=== PATIENT | female | born 1985 | race Caucasian/White ===

== ENCOUNTER 2021-09-16 11:13 | Emergency (ER) | payer MEDICAID, SELFPAY ==
[2021-09-16 11:15] VITALS: BP 119/77; PULSE 98; O2SAT 98; BMI 20.5
[2021-09-16 11:21] VITALS: BP 137/79; PULSE 88; RESP 16; TEMP 37.1; O2SAT 98
--- NOTE | 2021-09-16 11:47 | ED.ALLEREA ---
HPI - Allergic Reaction General Chief complaint: Allergic Reaction Stated complaint: ITCHY EYES/THROAT,ALLERGIC RX S/P EYEBROW WAX T-1 Time Seen by Provider: 09/16/21 11:47 Source: patient and EMS Mode of arrival: EMS Limitations: no limitations History of Present Illness MD complaint: allergic reaction and facial swelling Onset (ago): day(s) (yesterday ) Exposure: other (home eyebrow waxing kit) Symptoms: itching and facial swelling Severity: moderate Treatment prior to arrival: other (claritin) Previous Allergic Reaction History: none Related Data Previous Rx's Medication Instructions Recorded prednisone 20 mg tablet 40 mg PO DAILY 4 Days #8 tab 09/16/21 Allergies Allergy/AdvReac Type Severity Reaction Status Date / Time Benadryl Allergy Unknown Hives Uncoded 09/16/21 11:21 From BENADRYL Allergy Unknown HIVE Uncoded 08/14/20 15:41 Review of Systems Review of Systems: Constitutional : No Fever, No Chills ENT/Mouth : no oral swelling, No Hoarseness, No Swallowing Difficulty Eyes: No Eye Pain, No Swelling, No Redness Cardiovascular : No Chest Pain, No SOB Respiratory : No Cough, No Sputum, No Wheezing, No Smoke Exposure, No Dyspnea Gastrointestinal : No Nausea, No Vomiting, No Diarrhea, No abdominal Pain Genitourinary : No Dysuria, No Urinary Frequency, No Hematuria Musculoskeletal : No joint pain, No Myalgias, No Joint Swelling Skin : No Skin Lesions, positive rash, pos facial swelling Neuro : No Weakness, No Numbness, No Headache PMFSH Past Medical History Attestation statement: The following information was validated with the patient. Medical History No known health problems Social History Social History (Updated 09/16/21 @ 11:51 by Jenni Adkins DO) Patient Tobacco Use Status: Never used Tobacco Advance Directives: No Advance Directives Information Provided: No Patient : No Physical Exam Vital Signs: Vital Signs: Last Vital Signs Temp 98.7 F 09/16/21 11:21 Pulse 88 09/16/21 11:21 Resp 16 09/16/21 11:21 BP 137/79 09/16/21 11:21 Pulse Ox 98 09/16/21 11:21 Body Mass Index 20.5 Appearance: Alert. Oriented X3. No acute distress. Eyes: Pupils equal, round and reactive to light. ENT: Pharynx normal. mild erythema and raised hive like areas noted around eyebrow area Neck: Normal inspection. Neck supple. CVS: Normal heart rate and rhythm. Pulses normal. Respiratory: No respiratory distress. Breath sounds normal. Abdomen: Soft and nontender. Skin: Skin warm and dry. Normal skin color. Normal skin turgor. Extremities: No lower extremity edema Neuro: Oriented X 3. No motor deficit. No sensory deficit. MDM - Allergic Reaction MDM Narrative Medical decision making narrative: 36 yo female with isolated edema/erythema to eyebrows after using home waxing kit - will need prednisone to decrease swelling, no resp involvement, no other complaints. Aware she cannot use the kit again Discharge Plan Discharge Clinical Impression: Allergic reaction Qualifiers: Encounter type: initial encounter Qualified Code(s): T78.40XA - Allergy, unspecified, initial encounter Patient Disposition: Home, Self-Care Instructions: General Allergic Reaction (ED) Additional Instructions: return to ED for any worsening symptoms or concerns Prescriptions: New prednisone 20 mg tablet 40 mg PO DAILY 4 Days Qty: 8 RF: 0 Stand Alone Forms: Work/School Release
[2021-09-16] MEDS: predniSONE 20 MG TABLET 40 MG PO (11:56)
== END 2021-09-16 11:59 | disposition home or self-care (01) ==
PROVIDERS: Emergency Provider Emergency Medicine
DX: T78.40XA Allergy, unspecified, initial encounter (principal); X58.XXXA Exposure to other specified factors, initial encounter
CPT/HCPCS: 99283

== ENCOUNTER 2021-11-03 10:38 | Emergency (ER) | payer MEDICAID, SELFPAY ==
--- NOTE | ~2021-11-03 | XR_ITS ---
EXAMINATION: XR CHEST CLINICAL INFORMATION: Chest pain, SOB. COMPARISON: Left RIBS 12/20/2016 TECHNIQUE: Frontal view of the chest was obtained. FINDINGS: The lungs are hyperinflated but clear of acute process. The heart size and pulmonary vascularity is normal. No gross bony abnormality seen. XR/XR chest 1V IMPRESSION: Unremarkable chest examination.
--- NOTE | 2021-11-03 10:46 | ECG_ITS ---
Test Reason : CHEST PAIN Blood Pressure : / mmHG Vent. Rate : 077 BPM Atrial Rate : 077 BPM P-R Int : 144 ms QRS Dur : 084 ms QT Int : 366 ms P-R-T Axes : 057 087 052 degrees QTc Int : 414 ms Normal sinus rhythm Normal ECG When compared with ECG of 06-FEB-2007 13:46, No significant change was found Referred By: Loyda Farmer Electronically Signed By:Isai Dumont
[2021-11-03 10:47] VITALS: BP 123/81; BP 137/88; PULSE 73; PULSE 94; RESP 16; TEMP 36.7; O2SAT 100; BMI 20.1
--- NOTE | 2021-11-03 10:48 | ED_ITS ---
HPI - Chest Pain General Chief Complaint: Chest Pain Stated Complaint: CHEST TIGHTNESS,PALPITATIONS Time Seen by Provider: 11/03/21 10:42 Source: patient and EMS Mode of arrival: EMS Limitations: no limitations History of Present Illness HPI narrative: 36 y/o female with history of migraines who presents to the ER f rom home via EMS with intermittent episodes of chest tightness, SOB, and weakness that started yesterday. She reports yesterday she had a brief episode where her whole body felt weak, she was having some chest tightness and palpitations at the time. She had some shortness of breath when walking around as well. All of her symptoms resolved within a few moments. She had a normal rest of the day and when she woke up today she felt fine. She reports when she was outside walking to the car she again had recurrent feeling of generalized weakness with some mild shortness of breath and chest tightness. She describes the pain as if she got hit in the chest and there is a subsiding residual pain. On arrival to the ER she has no symptoms. She is not vaccinated for COVID. She has had no fever or chills. No known sick contacts. She is not on oral control pills. She has no personal or family history of blood clots. MD complaint: chest discomfort Onset (ago): day(s) (1) Timing of current episode: episodic Prior episodes: No Onset: during rest and during exertion Pain location: substernal Pain radiation: none Severity: mild Quality: tightness and aching Relieving factors: rest Exacerbating factors: nothing Associated symptoms: palpitations and other (Generalized weakness) Treatment prior to arrival: none Risk Factors Coronary artery disease risk factors: none Thoracic aortic dissection risk factors: none Related Data On Oral Contraceptives: No Previous Rx's Medication Instructions Recorded prednisone 20 mg tablet 40 mg PO DAILY 4 Days #8 tab 09/16/21 Allergies Allergy/AdvReac Type Severity Reaction Status Date / Time Benadryl Allergy Unknown Hives Uncoded 09/16/21 11:21 From BENADRYL Allergy Unknown HIVE Uncoded 08/14/20 15:41 Review of Systems Review of Systems: Constitutional: No Fever, No Chills ENT/Mouth: No sore throat, No Rhinorrhea, No Swallowing Difficulty Eyes: No Eye Pain, No Swelling, No Redness Cardiovascular: + Chest Pain, + SOB, No Orthopnea, No Edema, +palpitations Respiratory: No Cough, No Sputum, No Wheezing, No dyspnea Gastrointestinal: No Nausea, No Vomiting, No Diarrhea, No abdominal Pain, No Hematochezia, No Melena Genitourinary: No Dysuria, No Urinary Frequency, No Hematuria Musculoskeletal: No joint pain, No Myalgias Skin: No Skin Lesions, No rash Neuro: + Weakness, No Numbness, No Dizziness, No Headache Psych: + Anxiety/Panic, No Depression Heme/Lymph: No Bruising, No Lymphadenopathy Endocrine: No Polyuria, No Polydipsia [facility] Past Medical History Medical History (Updated 11/03/21 @ 11:03 by DAYANARA Scott) Migraines No known health problems Social History Social History (Updated 09/16/21 @ 11:51 by Jenni Adkins DO) Alcohol intake: current Alcohol intake frequency: holidays/special occasions only Patient Tobacco Use Status: Current everyday Tobacco user Use of substances other than those prescribed or required for medical reasons: Yes Substance Use Type: Marijuana Advance Directives: No Advance Directives Information Provided: Yes Physical Exam Vital Signs: Vital Signs: Last Vital Signs Temp 98.1 F 11/03/21 10:47 Pulse 73 11/03/21 10:47 Resp 16 11/03/21 10:47 BP 137/88 11/03/21 10:47 Pulse Ox 100 11/03/21 10:47 BMI result Body Mass Index 20.1 Appearance: Alert. Oriented X3. No acute distress. Eyes: Pupils equal, round and reactive to light. ENT: Pharynx normal. Neck: Normal inspection. Neck supple. CVS: Normal heart rate and rhythm. Pulses normal. Normal S1/S2, no murmur. Respiratory: No respiratory distress. Breath sounds normal. Abdomen: Soft and nontender. +BS x4 Skin: Skin warm and dry. Normal skin color. Normal skin turgor. No rashes. Extremities: No lower extremity edema. No calf tenderness or swelling. Neuro: Oriented X 3. No motor deficit. No sensory deficit. Course Course Course Narrative: 36 y/o healthy female presents to the ER with episodic feelings of generalized weakness, chest pains, SOB and palpitations. Had 2 episodes in the last day. Now resolved. No risk factors for PE, PERC negative. VS are normal with benign PE. Will get labs, EKG, COVID and CXR. Reevaluation(s) Reevaluation #1: Lab workup is unremarkable. EKG is normal, chest x-ray is normal, COVID negative. She continues to be symptom free. She reports history of similar episodes several years ago, but is more worried with them now that she is getting older. She called her primary care doctor prior to coming into the ER and plans follow-up with them as an outpatient for further evaluation and management. At this time she is stable for discharge home with close outpatient follow-up and plan to return to the ER if symptoms worsen. MDM - Chest Pain Medical Records Data Attestation: I reviewed the patient's medical records. Lab Data Attestation: I reviewed the patient's lab results. Result diagrams: 11/03/21 11:04 11/03/21 11:04 Labs: Lab Results 11/03/21 11/03/21 11/03/21 Range/Units 11:04 11:04 11:04 WBC 6.1 (4.8-10.8) X10*3/uL RBC 3.99 L (4.20-5.50) X10*6/uL Hgb 11.6 L (12.0-16.0) g/dl Hct 35.2 L (37.0-47.0) % MCV 88.2 (80.0-98.0) fL MCH 29.1 (27.0-33.0) pg MCHC 33.0 (31.0-35.0) g/dl RDW 12.7 (11.0-16.0) % Plt Count 193 (160-400) X10*3/uL MPV 9.7 (9.4-12.3) fL Immature Gran % (Auto) 0.2 (0.0-0.4) % Neut % (Auto) 52.7 (45-73) % Lymph % (Auto) 36.4 (20-40) % Kaufman % (Auto) 8.2 (2-11) % Eos % (Auto) 1.8 (0-4) % Baso % (Auto) 0.7 (0-2) % Lymph # (Auto) 2.2 (1.2-4.9) X10*3/uL Kaufman # (Auto) 0.5 (0.1-1.2) X10*3/uL Eos # (Auto) 0.1 (0.0-0.4) X10*3/uL Baso # (Auto) 0.0 (0.0-0.2) X10*3/uL Abs Immat Gran (auto) 0.01 (0.00-0.03) X10*3/uL Absolute Neuts (auto) 3.2 (2.0-8.3) x10*3/uL Absolute Nucleated RBC 0.000 (0.0-0.012) X10*3/uL Nucleated RBC % (auto) 0.0 (0.0-0.2) /100WBC Sodium 137 (135-145) mmol/L Potassium 3.8 (3.3-5.1) mmol/L Chloride 106 (96-108) mmol/L Carbon Dioxide 24 (22-29) mmol/L Anion Gap 11 L (12-20) BUN 16 (9-16) mg/dL Creatinine 0.72 (0.5-1.4) mg/dL Estim Creat Clear Calc 86.7 Estimated GFR > 60 Random Glucose 87 (60-115) mg/dL Calcium 9.3 (8.4-10.2) mg/dL Magnesium 1.7 (1.6-2.6) mg/dL Total Bilirubin 1.0 (0.0-1.0) mg/dL Direct Bilirubin 0.4 (0.0-0.5) mg/dL AST 15 (5-31) U/L ALT 16 (0-31) U/L Alkaline Phosphatase 40 (39-117) U/L Troponin I High Sens < 3.5 (<3.5-17.0) ng/L Total Protein 7.1 (6.5-8.0) g/dL Albumin 4.2 (3.5-5.0) g/dL TSH (0.32-4.0) uIU/mL Influenza Type A (PCR) (Negative) Influenza Type B (PCR) (Negative) RSV RNA Qual (PCR) (Negative) SARS-CoV-2 RNA (RT-PCR) (Negative) 11/03/21 11/03/21 Range/Units 11:04 11:04 WBC (4.8-10.8) X10*3/uL RBC (4.20-5.50) X10*6/uL Hgb (12.0-16.0) g/dl Hct (37.0-47.0) % MCV (80.0-98.0) fL MCH (27.0-33.0) pg MCHC (31.0-35.0) g/dl RDW (11.0-16.0) % Plt Count (160-400) X10*3/uL MPV (9.4-12.3) fL Immature Gran % (Auto) (0.0-0.4) % Neut % (Auto) (45-73) % Lymph % (Auto) (20-40) % Kaufman % (Auto) (2-11) % Eos % (Auto) (0-4) % Baso % (Auto) (0-2) % Lymph # (Auto) (1.2-4.9) X10*3/uL Kaufman # (Auto) (0.1-1.2) X10*3/uL Eos # (Auto) (0.0-0.4) X10*3/uL Baso # (Auto) (0.0-0.2) X10*3/uL Abs Immat Gran (auto) (0.00-0.03) X10*3/uL Absolute Neuts (auto) (2.0-8.3) x10*3/uL Absolute Nucleated RBC (0.0-0.012) X10*3/uL Nucleated RBC % (auto) (0.0-0.2) /100WBC Sodium (135-145) mmol/L Potassium (3.3-5.1) mmol/L Chloride (96-108) mmol/L Carbon Dioxide (22-29) mmol/L Anion Gap (12-20) BUN (9-16) mg/dL Creatinine (0.5-1.4) mg/dL Estim Creat Clear Calc Estimated GFR Random Glucose (60-115) mg/dL Calcium (8.4-10.2) mg/dL Magnesium (1.6-2.6) mg/dL Total Bilirubin (0.0-1.0) mg/dL Direct Bilirubin (0.0-0.5) mg/dL AST (5-31) U/L ALT (0-31) U/L Alkaline Phosphatase (39-117) U/L Troponin I High Sens (<3.5-17.0) ng/L Total Protein (6.5-8.0) g/dL Albumin (3.5-5.0) g/dL TSH 0.55 (0.32-4.0) uIU/mL Influenza Type A (PCR) NEGATIVE (Negative) Influenza Type B (PCR) NEGATIVE (Negative) RSV RNA Qual (PCR) NEGATIVE (Negative) SARS-CoV-2 RNA (RT-PCR) NEGATIVE (Negative) ECG Data ECG #1: Attestation: I personally reviewed and interpreted this ECG as follows: ECG interpretation date: 11/03/21 ECG interpretation time: 11:02 Prior ECG tracings: not available for review Interpretation: Normal sinus rhythm, heart rate 77 beats per minute, normal MD interval, normal QRS, no ST segment elevations or depressions. Critical Care Time Critical Care Time Critical Care Time: No Discharge Plan Discharge Clinical Impression: Atypical chest pain Patient Disposition: Home, Self-Care Instructions: Noncardiac Chest Pain (ED) Additional Instructions: Your lab workup today was normal. Your chest x-ray was normal. You were negative for COVID-19. No evidence of cardiac cause of your chest pain. This may be anxiety related Recommend following up with your primary care doctor for further evaluation and management. If you develop new or worsening symptoms call 911 or come back to the ER for further evaluation. Prescriptions: No Action prednisone 20 mg tablet 40 mg PO DAILY 4 Days Qty: 8 RF: 0 Interventions: ED Discharge Assessment Last Done: 11/03/21 13:34 Discharge Date/Time: 11/03/21 13:38
[2021-11-03 11:15] LABS: Basophils Percent Auto 0.7 % (0-2); Eosinophils Absolute Auto 0.1 X10*3/uL (0.0-0.4); Eosinophils Percent Auto 1.8 % (0-4); Hematocrit 35.2 % (37.0-47.0); Hemoglobin 11.6 g/dl (12.0-16.0); Imm Gran Abs Auto 0.01 X10*3/uL (0.00-0.03); Imm Gran Pct Auto 0.2 % (0.0-0.4); Lymphocytes Absolute Auto 2.2 X10*3/uL (1.2-4.9); Lymphocytes Percent Auto 36.4 % (20-40); MANUAL DIFF FLAG NO; Mean Corpuscular Hemoglobin 29.1 pg (27.0-33.0); Mean Corpuscular Volume 88.2 fL (80.0-98.0); Mean Platelet Volume 9.7 fL (9.4-12.3); Monocytes Absolute Auto 0.5 X10*3/uL (0.1-1.2); Monocytes Percent Auto 8.2 % (2-11); Neutrophils Absolute Auto 3.2 x10*3/uL (2.0-8.3); Neutrophils Percent Auto 52.7 % (45-73); Platelet Count 193 X10*3/uL (160-400); Red Blood Count 3.99 X10*6/uL (4.20-5.50); Red Cell Distribution Width 12.7 % (11.0-16.0); White Blood Count 6.1 X10*3/uL (4.8-10.8)
[2021-11-03 11:34] LABS: Alanine Aminotransferase 16 U/L (0-31); Albumin Level 4.2 g/dL (3.5-5.0); Alkaline Phosphatase 40 U/L (39-117); Anion Gap 11 (12-20); Aspartate Amino Transferase 15 U/L (5-31); Bilirubin Direct 0.4 mg/dL (0.0-0.5); Blood Urea Nitrogen 16 mg/dL (9-16); Calcium 9.3 mg/dL (8.4-10.2); Carbon Dioxide 24 mmol/L (22-29); Chloride 106 mmol/L (96-108); Creatinine Clr Calc Pharmacy 86.7; Estimated Glomerular Filt Rate > 60; Glucose Random 87 mg/dL (60-115); Magnesium 1.7 mg/dL (1.6-2.6); Potassium 3.8 mmol/L (3.3-5.1); Sodium 137 mmol/L (135-145); Total Protein 7.1 g/dL (6.5-8.0)
[2021-11-03 11:37] LABS: Troponin-I High Sensitivity < 3.5 ng/L (<3.5-17.0)
[2021-11-03 11:51] LABS: TSH reflex Free T4 0.55 uIU/mL (0.32-4.0)
[2021-11-03 11:57] LABS: Influenza A PCR NEGATIVE (Negative); Influenza B PCR NEGATIVE (Negative); Resp Syncy Virus RNA Qual PCR NEGATIVE (Negative); SARS COV2 PCR INHOUSE NEGATIVE (Negative)
== END 2021-11-03 13:38 | disposition home or self-care (01) ==
PROVIDERS: Physician Assistant; Emergency Provider Emergency Medicine
DX: R07.9 Chest pain, unspecified (principal); R00.2 Palpitations; F17.200 Nicotine dependence, unspecified, uncomplicated; Z71.6 Tobacco abuse counseling; Z79.899 Other long term (current) drug therapy; Z20.822 Contact with and (suspected) exposure to COVID-19
CPT/HCPCS: 0241U; 36415; 71045; 80048; 80076; 83735; 84443; 84484; 85025; 93005; 99283; 99284

== ENCOUNTER 2023-10-13 12:07 | Outpatient (REF) | payer MEDICAID, SELFPAY ==
[2023-10-13 13:03] LABS: MANUAL DIFF FLAG NO
[2023-10-13 13:24] LABS: Basophils Percent Auto 0.6 % (0-2); Eosinophils Absolute Auto 0.3 X10*3/uL (0.0-0.4); Eosinophils Percent Auto 5.5 % (0-4); Hematocrit 36.6 % (37.0-47.0); Hemoglobin 11.6 g/dl (12.0-16.0); Imm Gran Abs Auto 0.01 X10*3/uL (0.00-0.03); Imm Gran Pct Auto 0.2 % (0.0-0.4); Lymphocytes Absolute Auto 1.8 X10*3/uL (1.2-4.9); Lymphocytes Percent Auto 29.1 % (20-40); Mean Corpuscular HGB Conc 31.7 g/dl (31.0-35.0); Mean Corpuscular Hemoglobin 28.6 pg (27.0-33.0); Mean Corpuscular Volume 90.4 fL (80.0-98.0); Mean Platelet Volume 10.2 fL (9.4-12.3); Monocytes Absolute Auto 0.4 X10*3/uL (0.1-1.2); Monocytes Percent Auto 6.1 % (2-11); Neutrophils Absolute Auto 3.6 x10*3/uL (2.0-8.3); Neutrophils Percent Auto 58.5 % (45-73); Platelet Count 283 X10*3/uL (160-400); Red Blood Count 4.05 X10*6/uL (4.20-5.50); Red Cell Distribution Width 12.8 % (11.0-16.0); White Blood Count 6.2 X10*3/uL (4.8-10.8)
[2023-10-13 13:38] LABS: Estimated Average Glucose 97 mg/dL
[2023-10-13 13:58] LABS: Alanine Aminotransferase 12 U/L (0-31); Alkaline Phosphatase 48 U/L (39-117); Anion Gap 10 (12-20); Aspartate Amino Transferase 14 U/L (5-31); Bilirubin Total 0.8 mg/dL (0.0-1.0); Blood Urea Nitrogen 16 mg/dL (9-16); Calcium 8.8 mg/dL (8.4-10.2); Carbon Dioxide 24 mmol/L (22-29); Chloride 108 mmol/L (96-108); Cholesterol 166 mg/dL (<200); Estimated Glomerular Filt Rate > 60; Glucose Random 105 mg/dL (60-115); HDL Cholesterol 82 mg/dL (>40); LDL Cholesterol Calculated 72 mg/dL (<100); Potassium 3.9 mmol/L (3.3-5.1); Sodium 138 mmol/L (135-145); Total Protein 7.3 g/dL (6.5-8.0); Triglycerides 64 mg/dL (<150)
[2023-10-13 14:14] LABS: TSH reflex Free T4 1.29 uIU/mL (0.32-4.0)
[2023-10-14 08:19] LABS: HBS Num1 72.15 mIU/mL (0-7.99); HBc Num1 0.06 S/CO (0.00-0.79); HIV AB/AG Nonreactive (Nonreactive); HIV Num 1 0.07 S/CO (0.00-0.99); Hepatitis B Core Antibody Nonreactive (Nonreactive); ~Hepatitis B Surface Antibody REACTIVE (Nonreactive)
[2023-10-14 17:24] LABS: HCV Log PCR <1.18 NOT DETECTED Log IU/mL (NOT DETECTED); HepC Viral Load <15 NOT DETECTED IU/mL (NOT DETECTED)
[2023-10-15 17:04] LABS: TS Negative Control Passed; TS Panel A 0; TS Panel B 2; TS Positive Control Passed; TSpotTB Negative (Negative)
[2023-10-17 08:29] LABS: RPR Rapid Plasma Reagin NON-REACTIVE (NON-REACTIVE)
== END 2023-10-13 12:08 | disposition home or self-care (01) ==
LOC: HO.HHCL 12:07
PROVIDERS: Visit Provider Registered Nurse
DX: Z00.00 Encounter for general adult medical examination without abnormal findings (principal)
CPT/HCPCS: 36415; 80053; 80061; 83036; 84443; 85025; 86481; 86592; 86704; 86706; 87389; 87522

== ENCOUNTER 2025-07-29 13:27 | Emergency (ER) | payer SELFPAY ==
--- NOTE | ~2025-07-29 | XR_ITS ---
CLINICAL HISTORY: Right rib pain. fall. fracture? Chest Radiographs, 2 views Comparison: None available Findings: No cardiomegaly. Normal mediastinal contours. No pneumothorax. No opacity. No pleural effusion. Normal upper abdomen. No acute fracture. Impression: No acute findings. This document has been electronically signed by: Mony Sims MD on 07/29/2025 15:13:19
--- NOTE | ~2025-07-29 | XR_ITS ---
CLINICAL HISTORY: injury, pain Radiographs of the right shoulder, 4 views Comparison: None available Findings: No fracture or dislocation. Normal acromiohumeral interval. The joint spaces are preserved without osteophytosis. No soft tissue swelling. Impression: No acute findings. This document has been electronically signed by: Mony Sims MD on 07/29/2025 15:58:48
[2025-07-29 13:37] VITALS: BP 142/101; PULSE 87; RESP 20; TEMP 37; O2SAT 100; BMI 21.6
--- NOTE | 2025-07-29 13:41 | ED.GENADULT ---
HPI - General Adult General Chief complaint: Fall Stated complaint: r rib area pain Time Seen by Provider: 07/29/25 14:24 Source: patient Mode of arrival: ambulatory Limitations: no limitations History of Present Illness ED Provider: Jg Bruner PA-C HPI narrative: 39-year-old female with medical history of migraines presents to the ED due to 6 days of right rib and right shoulder pain. Patient states she was walking her husky on a leash when the dog became excited lurching forward pulling the patient's right arm behind her and spinning her to her right. Patient states she felt immediate pain of the right shoulder and right rib area. She reports taking Motrin and Tylenol for pain without effect. MD complaint: R rib and R shoulder pain Related Data Previous Rx's ?Medication ?Instructions ?Recorded prednisone 20 mg tablet 40 mg (2 x 20 mg) PO DAILY 4 days 09/16/21 #8 tabs cyclobenzaprine 5 mg tablet 5 mg PO TID PRN muscle spasm #15 07/29/25 tabs ketorolac 10 mg tablet 10 mg PO Q8H PRN pain #9 tabs 07/29/25 Allergies Allergy/AdvReac Type Severity Reaction Status Date / Time Benadryl Allergy Unknown Hives Uncoded 07/29/25 13:41 From BENADRYL Allergy Unknown HIVE Uncoded 07/29/25 13:41 Review of Systems Review of Systems: CONST: Negative for fever, body aches and chills. HENT: Negative for neck pain/stiffness, headache, congestion, sore throat, swelling. EYES: Negative for discharge/pain or vision changes. RESP: Negative for cough/hemoptysis and shortness of breath. CV: Negative chest pain, difficulty breathing, palpitations. ABD: Negative pain, nausea, vomiting. : Negative increase frequency, dysuria, blood in urine or stool. MUSC: Negative for muscle aches, edema. POS R shoulder pain, R rib pain. SKIN: Negative rash, lesions/sores. NEURO: Negative headache, dizziness, weakness. Yes all other systems are reviewed and are negative [facility] Past Medical History Attestation statement: The following information was validated with the patient. Source: old records reviewed and nursing notes reviewed Medical History Migraines No known health problems Social History Social History Alcohol intake: current Alcohol intake frequency: holidays/special occasions only Patient Tobacco Use Status: Current everyday Tobacco user Smoked in Last 30 Days: Yes Use of substances other than those prescribed or required for medical reasons: No Substance Use Type: Marijuana Advance Directives: No Advance Directives Information Provided: No Patient : No Physical Exam ED Vital Signs: Vital Signs - 24 hr 07/29/25 13:37 07/29/25 16:11 07/29/25 16:16 Temperature 98.6 F Pulse Rate 87 89 89 Respiratory Rate 20 18 18 Blood Pressure 142/101 H 131/80 131/80 Pulse Oximetry 100 100 100 Oxygen Delivery Method Room Air Room Air BMI result Body Mass Index 21.6 GENERAL APPEARANCE: ?AxOx4, generally well-appearing, no acute distress. HEENT: ?NC, AT. MMM. EOMI, clear conjunctiva, oropharynx clear. NECK: ?Supple without lymphadenopathy.? No stiffness or restricted ROM. HEART:? Normal rate and regular rhythm, normal S1/S1, no m/r/g LUNGS:? CTAB, moving air well. No crackles or wheezes are heard. ABDOMEN: ?Soft, nontender, nondistended with good bowel sounds heard. TTP of R ribs and serratus muscle BACK: No CVAT, no obvious deformity. EXTREMITIES: ?Without cyanosis, clubbing or edema. TTP of right anterior and posterior shoulder, no bony abnormalities palpated, no anatomic abnormalities observed, full ROM, SILT, positive lift-off test. NEUROLOGICAL: ?Grossly nonfocal. Alert and oriented, moving all 4 extremities. Observed to ambulate with normal gait. Skin: ?Warm and dry without any rash. Course Course Course Narrative: RME: 39 year female presents to ED for right rib pain since falling on sidewalk onto right chest. Patient states she was walking her dog last using a dog yanked her and she fell hitting her right chest onto a sidewalk. Patient denies hitting head or loss of consciousness. Patient states pain on movement and breathing and lying down Medications Administered Discontinued Medications Generic Name Dose Route Start Last Admin Trade Name Freq PRN Reason Stop Dose Admin Acetaminophen 975 mg 07/29/25 14:45 07/29/25 15:05 Acetaminophen 325 Mg Tablet PO 07/29/25 14:46 975 mg ONCE ONE Administration Cyclobenzaprine HCl 5 mg 07/29/25 14:45 07/29/25 15:05 Cyclobenzaprine Hcl 5 Mg Tablet PO 07/29/25 14:46 5 mg ONCE ONE Administration Ketorolac Tromethamine 30 mg 07/29/25 14:45 07/29/25 15:04 Ketorolac Tromethamine 30 Mg/Ml Vial IM 07/29/25 14:46 30 mg ONCE ONE Administration Medical Decision Making Medical Decision Making MDM Narrative: 39-year-old female with medical history of migraines presents to the ED due to 6 days of right rib and right shoulder pain. Patient states she was walking her husky on a leash when the dog became excited lurching forward pulling the patient's right arm behind her and spinning her to her right. Patient states she felt immediate pain of the right shoulder and right rib area. Plan: CXR, XR R shoulder Course 16:15- CXR negative for rib fracture XR R shoulder negative for fracture or dislocation At this time I suspect rotator cuff injury, with serratus anterior muscle strain. Patient was medicated with 30 mg IM, 975 mg oral Tylenol with minimal relief of pain. I will discharge patient with 3 days of oral Toradol, 5 days of Flexeril for muscle strain. Counseled patient to use 500 mg of Tylenol for additional management of pain and follow up with her primary care doctor to ensure improvement and resolution of symptoms. I placed referral to orthopedics for further evaluation and treatment for rotator cuff injury. Patient is in agreement with the plan. Differential Diagnosis Differential Diagnoses: The differential diagnosis associated with the presentation includes Shoulder fracture Shoulder dislocation Rib fracture Rotator cuff injury Serratus anterior muscle strain Admission/Observation Consideration of admission/observation: Escalation of care including admission/observation considered Independent Interpretation I performed an independent interpretation of an: Plain X-Ray Interpretation: I personally interpreted CXR which was negative for rib fracture, I agree with the radiologist's interpretation I personally interpreted the XR R shoulder which was negative for dislocation or fracture, I agree with the radiologist's interpretation Radiology Impression Discussion of test interpretation with radiology: I have reviewed the radiologist's reading. Radiologist Impression: CXR Findings: No cardiomegaly. Normal mediastinal contours. No pneumothorax. No opacity. No pleural effusion. Normal upper abdomen. No acute fracture. Impression: No acute findings. This document has been electronically signed by: Mony Sims MD on 07/29/2025 15:13:19 Dictated By: Mony Savage MD Signed By: <Electronically signed by Mony Savage MD in [place]> 07/29/25 1514 XR R shoulder Findings: No fracture or dislocation. Normal acromiohumeral interval. The joint spaces are preserved without osteophytosis. No soft tissue swelling. Impression: No acute findings. This document has been electronically signed by: Mony Sims MD on 07/29/2025 15:58:48 Dictated By: Mony Savage MD Signed By: <Electronically signed by Mony Savage MD in [place]> 07/29/25 1559 External Record Review External record reviewed: Inpatient record, Office record and Outpatient record Discharge Plan Discharge Clinical Impression: Rotator cuff injury Patient Disposition: Home, Self-Care Instructions: Rotator Cuff Injury (ED), Rotator Cuff Injury Exercises (DC) Additional Instructions: You were evaluated in the ED due to right shoulder and rib pain. Your x-ray was negative for any fracture or dislocation of your ribs or shoulder. You were medicated in the department with 30 mg IM Toradol, 5 mg of Flexeril, and 975 mg of Tylenol for pain management. You are being prescribed 5 day course of Flexeril, 3 days of Toradol. You can take 500 mg of Tylenol every 6 hours in addition to these medications for pain management. While taking Toradol do not take any other NSAIDs including ibuprofen, Motrin, Aleve. Additionally you can ice the area and perform gentle stretching for your rotator cuff. I placed a referral to the orthopedic doctors for you, you need to call their office they will not call you for further evaluation and management of rotator cuff pain. Please return to the emergency department if you experience fevers over 100.4?, worsening pain of your right shoulder, worsening pain of your ribs, loss of sensation in your right arm, inability to move the arm, chest pain, shortness of breath, or any other new/worsening/concerning symptoms. Prescriptions: New ketorolac 10 mg tablet 10 mg PO Q8H PRN (Reason: pain) Qty: 9 0RF Rx Instructions: Patient was medicated with 30 mg IM Toradol while in department for pain management, and anti-inflammatory properties. cyclobenzaprine 5 mg tablet 5 mg PO TID PRN (Reason: muscle spasm) Qty: 15 0RF No Action prednisone 20 mg tablet 40 mg PO DAILY 4 Days Qty: 8 0RF Stand Alone Forms: Work/School Release Interventions: ED Discharge Assessment Last Done: 07/29/25 16:34 Discharge Date/Time: 07/29/25 16:38 Print Language: Eritrean
--- OUTSIDE RECORDS SUMMARY | 2025-07-29 14:36 | XMS_ITS | Encounter Summary ---
Author Organization [employer] Address [address] [facility] [address] [place] [address] Care Team Providers Care License Inspector Name Role Phone Bouchra Patterson [employer] Primary Care Provider [phone] Encounter Details Date Type Department Care Team ([facility] st Contact Info) Description 03/21/2025 Orders Only [facility] [address] [place], [place] [id number] ProviderBritney MD Social History Tobacco Use Types Packs/Day Years Used Date Smoking Tobacco: Former Cigarettes Smokeless Tobacco: Never Alcohol Use Standard Drinks/Week Comments Yes 0 (1 standard drink = 0.6 oz pur e alcohol) occasionally Depression Answer Date Recorded Patient Health Questionnaire-9 Score 1 10/10/2023 Patient Health Questionnaire-9 Score 1 10/10/2023 Last PHQ-9: Questionnaire Data Not on file 1 12/10/2022 Housing Stability Answer Date Recorded What is your housing situation today? I have sathish quick 09/30/[address] you li ve. Do you have problems with any of the following? None of the above 09/30/2023 Food Insecurity Answer Date Recorded Within the past 12 months, y ou worried that your food would run out before you got money to buy more: Never True 09/30/2023 Within the past 12 months,th e food you bought just didn't last and you didn't have enough money to get more: Never True 01/2023 Transportation Answer Date Recorded In the past 12 months, has l ack of transportation kept you from medical appts, meetings, work or from getting things needed for daily living? No 09/30/2023 Utilities Answer Date Recorded In the past 12 months, has t he electric, gas, oil or water company threatened to shut off services in your home? No 09/30/2023 Depression Answer Date Recorded Patient Health Questionnaire-2 Score 0 10/10/2023 Comments Unknown Sex and Gender Information Value Date Recorded Sex Assigned at Female 09/27/2022 10:21 AM EDT Legal Sex Female 10:21 AM EDT Gender Identity Female 09/27/2022 10:21 AM EDT Sexual Orientation Straight 09/27/2022 10 :21 AM EDT documented as of this encounter Plan of Treatment Upcoming Encounters Date Type Department Care Team (Late st Contact Info) Description 09/12/2025 3:00 PM EDT Office Visit [facility] [address] [place] [address] ButchGaby mann, OD [address] [place] [address] documented as of this encounter Procedures Procedure Name Priority Date/Time Associated Diagnosis Comments PAP/HPV Routine 10/19/2021 8:49 AM EST documented in this encounter Results * HM PAP/HPV (10/19/2021 8:49 AM EST) Pap Smear 1. NILM 1. NILM HPV Not Detected Undetected, Indeterminat e, Quantitative , Not Detected Narrative Debbie Neves - 10/19/2021 8:49 AM EST [facility] us Historical Provider HEALTH MAINTENANCE Edited Result - Final documented in this encounter Visit Diagnoses Not on filedocumented in this encounter Additional Health Concerns Assessment Noted Time PHQ-9 Depression Total Score: 1 10/10/20 23 1:18 PM EST documented as of this encounter Care Teams License Inspector Relationship Specialty Start Date End Date Bouchra Patterson FNP [address] [place] [address] PCP - General Family Medicine 07/28/22 documented as of this encounter
--- OUTSIDE RECORDS SUMMARY | 2025-07-29 14:36 | XMS_ITS | Clinical Summary ---
Author Organization [facility] Address [address] [facility] [address] [place] [address] Phone Care Team Providers Care Price Clerk Name Role Phone Unknown, Unknown Primary Care Provider Phil ball Social History Tobacco Use Types Packs/Day Years Used Date Smoking Tobacco: Never Assessed Education Answer Date Recorded Are you interested in more education? Not on radha e 03/25/2023 Are you concerned about learning? Not on file 03/25/2023 No 03/25/2023 No 03/25/2023 Digital Access Answer Date Recorded No 04/26/2023 No 04/26/2023 Reliable internet access at home? Not on file 04/26/2023 Device with a working camera? Not on file Comments Unknown Sex and Gender Information Value Date Recorded Sex Assigned at Not on file Legal Sex Female 5:14 PM EST Gender Identity Not on file Sexual Orientation Not on file Plan of Treatment Not on file Medical Devices Not on file [place] [address] [address] [address] [place] [address] [place] [address] C3 ACO C3 ACO C3 A[employer] C3 ACO C3 ACO C3 ACO [facility] C3 ACO Care Teams Price Clerk Relationship Specialty Start Date End Date Unknown, Unknown, PCP - General 11/05/20 Additional Source Comments The information contained in this document represents components of the legal health record. It is not the complete legal health record.[facility]
--- OUTSIDE RECORDS SUMMARY | 2025-07-29 14:36 | XMS_ITS | Encounter Summary ---
Author Organization [employer] Address [address] [place] [address] [address] [place] [address] Care Team Providers Care Alumnae Secretary Name Role Phone Bouchra Patterson [employer] Primary Care Provider [phone] Encounter Details Date Type Department Care Team ([facility] st Contact Info) Description 10/24/2023 Orders Only [facility] [address] [place], [place] [phone] Bouchra Patterson FNP [address] [place] [address] Anemia, unspecified type (Primary Dx) Social History Tobacco Use Types Packs/Day Years Used Date Smoking Tobacco: Former Cigarettes Smokeless Tobacco: Never Depression Answer Date Recorded Patient Health Questionnaire-9 [...] Description 09/12/2025 3:00 PM EDT Office Visit [facility] [address] [place] [address] ButchGaby mann, OD [address] [place] [address] Scheduled Orders Name Type Priority Associated Diagnoses Orde r Schedule CBC auto differential Lab Routine Anemia, unspecified type Expected: 10/24/2023 (Approximate), Expires: 10/24/2024 Iron And Total Iron Binding Capacity Lab Routine Anemia, unspecified type Expected: 10/24/2023 (Approximate), Expires: 10/24/2024 Ferritin Lab Routine Anemia, unspecified type Expected: 10/24/2023, Expires: 10/24/2024 Vitamin D, 25-Hydroxy, Total, Immunoassay Lab Routine Anemia, unspecified type Expected: 10/24/2023 (Approximate), Expires: 10/24/2024 Vitamin B12 Lab Routine Anemia, unspecified type Expected: 10/24/2023, Expires: 10/24/2024 documented as of this encounter Visit Diagnoses Diagnosis Anemia, unspecified type- Primary documented in this encounter Additional Health Concerns Assessment Noted Time PHQ-9 Depression Total Score: 1 10/10/20 23 1:18 PM EST documented as of this encounter Care Teams Alumnae Secretary Relationship Specialty Start Date End Date Bouchra Patterson FNP [address] [place] [address] PCP - General Family Medicine 07/28/22 documented as of this encounter
--- OUTSIDE RECORDS SUMMARY | 2025-07-29 14:36 | XMS_ITS | Clinical Summary ---
Author Organization [employer] Address [address] [facility] [address] [place] [address] Care Team Providers Care Staff Weapons Officer Name Role Phone Bouchra Patterson MADY Primary Care Provider [phone] Allergies No known active allergies Medications norethindrone (Micronor) 0.35 MG tabletIndication s:Menorrhagia with irregular cycle Take 1 tablet (0.35 mg) by mouth in the morning. 28 tablet 2 3 Active topiramate (Topamax) 50 MG tabletIndication s:Migraine with aura and without status migrainosus, not intractable Take 1 tablet by mouth at bedtime. 90 tablet 3 3 Active nicotine (Nicoderm CQ) 14 MG/24HR patchIndications :Vaping nicotine dependence, tobacco product Apply 1 patch on the skin (one) time each day at the same time x 6 weeks. 14 patch 3 Active nicotine (Nicoderm CQ) 7 MG/24HR patchIndications :Vaping nicotine dependence, tobacco product After completion of 14 mg/day patch: Apply 1 patch on the skin (one) time each day at the same time x 2 weeks. 14 patch 3 Active nicotine polacrilex (Nicorette) 2 MG gumIndications:V aping nicotine dependence, tobacco product Chew 1 each (2 mg) if needed for smoking cessation. Recommended guidelines: Weeks 1-6: Chew 1 piece of gum every 1-2 hrs (max 24 pieces/day) Weeks 7-9: Chew 1 piece of gum every 2-4 hrs Weeks 10-12: Chew 1 piece of gum every 4-8 hrs 2 each 3 3 Active tacrolimus (Protopic) 0.1 % ointment Apply small amount to area around both eyes at bedtime. Wash hands after application. 30 g 2 Active Active Problems Problem Noted Date Diagnosed Date Influenza A 12/25/2024 Assessment & Plan (12/25/2024 3:21 PM EST): -rapid influenza A positive -prescribed Tamiflu -droplet precautions discussed -supportive care discussed Nummular eczema 06/18/2024 Assessment & Plan (06/18/2024 5:11 PM EDT): Suspect eczema, trial topical steroid bid, May discontinue medication if rash resolves Avoid detergents and soaps, rtc for failure to resolve Vaping nicotine dependence, tobacco product 09/28 Assessment & Plan (10/13/2023 5:56 PM EST): Encouraged smoking cessation resources such as pharmacomtherapy, [facility] smoking cessation group, and [facility] pharmacy smoking cessation clinic Start NRT patches and gum Healthcare maintenance 10/10/2023 Assessment & Plan (10/13/2023 5:54 PM EST): STI: Asymptomatic STI screening ordered Sep 2023 Contraception: BTL Pap/Results: NIL PAP 08/2021. Scheduled 10/17/23 w/ [facility] CNM Smoking status: vaping nicotine daily Lipids: pending Optometry: referral to [facility] Eye Care 10/10/23 (also provided with list of local clinicians) Migraine with aura 03/30/2022 09/16/2023 Overview (10/13/2023): Continues on topiramate 50mg nightly Anxiety 03/30/2022 09/16/2023 LGSIL on Pap smear of cervix 03/13/2020 Overview (12/25/2024): 10/2018 -colpo Bx STONE 2 and 3 Plan LEEP 11/2018 - LEEP results STONE 3 ,ECC insufficient Plan repeat colpo 6 months 09/2019- colpo Bx- neg, ECC neg Plan: repeat pap smear 1 yr Per [place] [facility] ANALYST note on 12/02/23, Last Pap: 2020 NIL neg HPV. Reviewed ASCCP guidelines. Pap smear due 2025, yearly pelvic exam. Resolved Problems Problem Noted Date Diagnosed Date Resolved Date Anaphylaxis 09/16/2023 09/16/2023 10/13/2023 Immunizations Immunization Administration Dates Next Due DTP 08/27/1998, 3,09/27/1990,1987,01/27/1988 Hep B, Adolescent or Pediatric 09/07/2000,1999,02/17/2000 Hib (PRP-T) 09/27/1990 IPV 05/27/1993, 0,05/24/1988,1987 MMR 02/17/2000,02/24/1989 Pfizer Covid-19 Vaccine 12+ hortensia-sucrose (Lawler Cap) 12/19/2022 TD (adult), 2 Lf tetanus tox oid, preservative free, adsorbed 02/17/2000 Tdap 04/07/2018 Family History Medical History Relation Name Comments Throat cancer Father Breast cancer Father's Sister pacemaker Maternal Grandmother Diabetes Mother's Brother Colon cancer Paternal Grandfather Relation Name Status Comments Father Father's Sister Maternal Grandmother Mother's Brother Paternal Grandfather Social History Tobacco Use Types Packs/Day Years Used Date Smoking Tobacco: Former Cigarettes Smokeless Tobacco: Never Tobacco Cessation:Counseling Given: Not Answered Alcohol Use Standard Drinks/Week Comments Yes 0 [...] Orientation Straight 09/27/2022 10 :21 AM EDT Last Filed Vital Signs Vital Sign Reading Time Taken Comments Blood Pressure 137/90 12/25/2024 3:17 PM EST Pulse 102 12/25/2024 3:17 PM EST Temperature 36.4 C (97.5 F) 12/25/2024 3:17 PM EST Respiratory Rate 20 12/25/2024 3:17 PM EST Oxygen Saturation 98% 12/25/2024 3:17 PM EST Inhaled Oxygen Concentration - - Weight 59.4 kg (131 lb) 12/25/2024 3:17 PM EST Height 157.5 cm (5' 2 ) 12/25/2024 3:17 PM EST Body Mass Index 23.96 12/25/2024 3:17 PM EST Plan of Treatment Upcoming Encounters Date Type Department Care Team (Late st Contact Info) Description 09/12/2025 3:00 PM EDT Office Visit [facility] [address] [place] [address] Butch, Gaby, OD [address] [place] [address] Health Maintenance Due Date Last Done Comments Disability Screening 1987 Alcohol/Substance Use Screening 1999 Family Planning (PISQ) 2002 HPV Vaccines (1 - 3-dose series) 2002 COVID-19 Vaccine ( season) 2024 12/19/2022 SDOH Screening 09/30/2024 09/30/2023 Depression Screening 10/10/2024 10/10/2023, 10/10/20 23 Influenza Vaccine (#1) 2025 Tobacco Screening 12/25/2025 12/25/2024 Cervical Cancer Screening 10/19/2026 HPV/Cotest 10/19/2026 10/19/2021, 09/27/2018 Pap Smear 10/19/2026 10/19/2021 DTaP/Tdap/Td Vaccines (8 - Td or Tdap) 04/07/2028 04/07/2018, 02/17/2000, 08/27/1998, Additional history exists Zoster Vaccines (1 of 2) 2037 RSV Patients and Patients Aged 60 years or older (1 - 1-dose 75+ series) 2062 HIB Vaccines Completed 09/27/1990 IPV Vaccines Completed 05/27/1993, 08/30, 05/24/1988, Additional history exists Hepatitis B Vaccines Completed 09/07/2000, 05/25/2000, 02/17/2000 HIV Screening Completed 10/13/2023 Hepatitis C Screening Completed 10/13/2023 Hepatitis A Vaccines Aged Out No long er eligible based on patient's age to complete this topic Meningococcal B Vaccine Aged Out No l onger eligible based on patient's age to complete this topic Meningococcal Vaccine Aged Out No sandra micik eligible based on patient's age to complete this topic Pneumococcal Vaccine: Pediatrics (0 to 5 Years) and At-Risk Patients (6 to 49) Years Aged Out No longer eligible based on patient's age to complete this topic RSV under 20 months Aged Out No longe r eligible based on patient's age to complete this topic Rotavirus Vaccines Aged Out No longer eligible based on patient's age to complete this topic Procedures Procedure Name Priority Date/Time Associated Diagnosis Comments HEPATITIS C VIRAL RNA, QUANTITATIVE, REAL-TIME PCR Routine 10/13/2023 12:09 PM EST Healthcare maintenance HIV 1/2 ANTIGEN/ANTIBODY, FOURTH GENERATION W/RFL Routine 10/13/2023 12:09 PM EST Healthcare maintenance HM PAP/HPV Routine 10/19/2021 8:49 AM EST from Last 3 Months or Most Recently Relevant to Health Maintenance Results * Hepatitis C Viral RNA, Quantitative, Real-Time PCR (10/13/2023 12:09 PM EST) Pathologist [facility] Hepatitis C Viral Load <15 NOT DETECTED NOT DETECTED IU/mL [facility] HCV Log PCR <1.18 NOT DETECTED NOT DETECTED Log IU/mL [facility] Comment:This test was perfor med using Real-Time Polymerase ChainReaction.Reportable Range: 15 IU/mL to 100,000,000 IU/mL(1.18 Log IU/mL to 8.00 Log IU/mL).The analytical performance characteristics of thisassay have been determined by [facility].The modifications have not been cleared or approved bythe FDA. This assay has been validated pursuant to theCLIA regulations and is used for clinical purposes.For more information on this test, go to:http://education.[employer]/faq/HAK00u9(This link is being provided for informational/educational purposes only.)THIS TEST WAS PERFORMED AT:[facility] [place] [phone] GONZALEZ MD Blood 10/13/2023 12:0 9 PM EST 10/13/2023 1:00 PM EST us Bouchra Patterson [facility] BLOOD ORDERABLES Final Res ult [facility] [address] [place] [phone] * HIV-1/2 Antigen and Antibodies, Fourth Generation, with Reflexes (10/13/2023 12:09 PM EST) Pathologist [facility] HIV AB/AG Nonreactive Nonreactive [facility] Comment:HIV-1 p24 Ag and/or HIV-1/HIV-2 Ab not detected.A test result that is nonreactive does not exclude thepossibility of exposure to or infection with HIV-1 and/orHIV-2. Nonreactive results in this assay for individualswith prior exposure to HIV-1 and/or HIV-2 may be due toantigen and antibody levels that are below the limit ofdetection of this assay.The [employer] Tempo HIV Ag/Ab Combo assay result andsupplemental assay results should be interpreted inconjunction with the patient's clinical presentation,history and other laboratory results. If the results areinconsistent with clinical evidence, additional testing issuggested to confirm the result. Blood Venous blood specimen / Unknown 10/13/2023 12:09 PM EST 10/13/2023 1:00 PM EST Bouchra Patterson [employer] LAB BLOOD ORDERABLES Final Res ult [facility] [address] [place] [address] [phone] * HM PAP/HPV (10/19/2021 8:49 AM EST) Pap Smear 1. NILM 1. NILM HPV Not Detected Undetected, Indeterminat e, Quantitative , Not Detected Jame Debbie Neves - 10/19/2021 8:49 AM EST [facility] Historical Provider HEALTH MAINTENANCE Edited Result - Final from Last 3 Months or Most Recently Relevant to Health Maintenance [place] [place] [address] C3 Care Teams Staff Weapons Officer Relationship Specialty Start Date End Date Bouchra Patterson FNP [address] [place] [phone] PCP - General Family Medicine 07/28/22
--- OUTSIDE RECORDS SUMMARY | 2025-07-29 14:36 | XMS_ITS | Clinical Summary ---
Author Organization [facility] Address [address] [place] [phone] Phone Care Team Providers Care Retarder Operator Name Role Phone Unavailable Primary Care Provider Unavailabl e Immunizations Immunization Administration Dates Next Due DTP 08/27/1998, 3,09/27/1990,1987,01/27/1988 Hep B, ped/adol 09/07/2000,05/25/2000,02/17/2000 Hib (PRP-T) 09/27/1990 IPV 05/27/1993, 0,05/24/1988,1987 MMR 02/17/2000,02/24/1989 Td (adult) (MBL), 2 Lf tetan us toxoid, PF, adsorbed 02/17/2000 Social History Tobacco Use Types Packs/Day Years Used Date Smoking Tobacco: Never Assessed Comments Unknown Sex and Gender Information Value Date Recorded Sex Assigned at Not on file Legal Sex Female 4:43 PM EDT Gender Identity Not on file Sexual Orientation Not on file Plan of Treatment Health Maintenance Due Date Last Done Comments Varicella Vaccines (1 of 2 - 13+ 2-dose series) 2000 DTaP,Tdap,and Td Vaccines (7 - Tdap) 02/16/2010 02/17/2000, 08/27/1998, 05/27/1993, Additional history exists HPV Vaccines (1 - 3-dose SCDM series) 2014 Influenza Vaccines (#1) 2025 COVID-19 Vaccine ( season) 2025 HIB Vaccines Completed 09/27/1990 IPV Vaccines Completed 05/27/1993, 08/30, 05/24/1988, Additional history exists MMR Vaccines Completed 02/17/2000, 02/24/1989 Hepatitis B Vaccines Completed 09/07/2000, 05/25/2000, 02/17/2000 Hepatitis A Vaccines Aged Out No long er eligible based on patient's age to complete this topic Men B Vaccine Aged Out No longer elig ible based on patient's age to complete this topic Meningococcal Vaccine Aged Out No sandra micki eligible based on patient's age to complete this topic Pneumococcal Vaccine Aged Out No long er eligible based on patient's age to complete this topic
[2025-07-29 16:11] VITALS: BP 131/80; PULSE 89; RESP 18; O2SAT 100
[2025-07-29 16:16] VITALS: BP 131/80; PULSE 89; RESP 18; O2SAT 100
[2025-07-29 16:34] VITALS: BP 131/80; PULSE 89; RESP 18; TEMP -17.7; TEMP 0; O2SAT 100
--- NOTE | 2025-07-29 16:35 | PC.NURSE ---
Pt presented with shoulder and rib pain. Tolerated IM toradol well, but pain reduced only minimally. Pt rested well, slept. SO at bedside, verbalized understanding that patient could not drive with muscle relaxer. Pt verbalized DC instructions, Ambulated off the floor indedendently.
== END 2025-07-29 16:38 | disposition home or self-care (01) ==
PROVIDERS: Emergency Provider Emergency Medicine
DX: S46.001A Unspecified injury of muscle(s) and tendon(s) of the rotator cuff of right shoulder, initial encounter (principal); X50.9XXA Other and unspecified overexertion or strenuous movements or postures, initial encounter; Y93.K1 Activity, walking an animal; Y92.9 Unspecified place or not applicable; Y99.9 Unspecified external cause status; R07.81 Pleurodynia; M25.511 Pain in right shoulder
CPT/HCPCS: 71046; 73030; 96372; 99284; J1885

== ENCOUNTER → 2025-07-29 13:41 | Outpatient (BNV) | payer MEDICAID, SELFPAY | PROVIDERS: Emergency Provider Emergency Medicine; Visit Provider Radiology Diagnostic Radiology | DX: R07.89 Other chest pain (principal); S49.91XA Unspecified injury of right shoulder and upper arm, initial encounter; M25.511 Pain in right shoulder | CPT/HCPCS: 71046; 73030 ==

== ENCOUNTER 2025-10-02 18:06 | Outpatient (REF) | payer MEDICAID, SELFPAY ==
--- OUTSIDE RECORDS SUMMARY | 2025-10-02 19:14 | XMS_ITS | Clinical Summary ---
Author Organization [facility] Address [address] [facility] [address] [place] [phone] Phone Care Team Providers Care Spar Machine Operator Name Role Phone Unknown, Unknown Primary Care [...] file Medical Devices Not on [place] [address] [place] [address] [place] [address] [place] [address] C3 ACO C3 ACO C3 ACO C3 ACO C3 ACO C3 ACO [facility] C3 ACO Care Teams Spar Machine Operator Relationship Specialty Start Date End Date Unknown, Unknown, PCP - General 11/05/20 Additional Source Comments The information contained in this document represents components of the legal health record. It is not the complete legal health record.[facility]
--- OUTSIDE RECORDS SUMMARY | 2025-10-02 19:14 | XMS_ITS | Clinical Summary ---
Author Organization [facility] Address [address] [place] [phone] Phone Care Team Providers Care Shore Man Name Role Phone Unavailable Primary Care Provider [...]
== END 2025-10-02 18:07 | disposition home or self-care (01) ==
LOC: HO.LNP 18:06
PROVIDERS: Visit Provider Advanced Practice Midwife
DX: R30.0 Dysuria (principal)
CPT/HCPCS: 87086; 87626; 88175